=== PATIENT | female | born 1960 | race Asian ===

== ENCOUNTER 2017-08-13 14:01 | Emergency (ER) | payer MEDICAID, OTHER ==
[~2017-08-13] VITALS: Ht 165.1 cm; Wt 51.7 kg
[~2017-08-13 14:01] MED LIST: AUGMENTIN 875-1 EAC1 ORAL
[2017-08-13 14:15] VITALS: BP 110/73
[2017-08-13] MEDS ORDERED: Bacitracin Oint UD TOPIC ONE (14:15)
[2017-08-13] MEDS ORDERED: BACITRACIN15 GM TOPIC (14:26)
[2017-08-13 14:38] VITALS: BP 110/73
--- NOTE | 2017-08-13 15:23 | Emergency Room Report ---
History of Present Illness General Chief Complaint: Laceration Source: Patient Present Illness HPI The patient is a 56 old female presenting for right hand injury. She states that she was using a mandolin at home yesterday afternoon and cut the right palm. She states that there was some bleeding. She cleaned the area with alcohol and water and applied a dressing. She denies any pain today but states that she did have some bleeding. Last tetanus shot was 2 years prior. She denies any other injury or symptoms Allergies: Coded Allergies: No Known Allergies (Unverified , 02/05/15) Patient History Past Medical History: see triage record Pertinent Family History: none Reviewed Nursing Documentation: PMH: Agreed, PSxH: Agreed Nursing Documentation-PMH Hx Cardiac Problems: No Hx Hypertension: No Hx Pacemaker: No Hx Asthma: No Hx COPD: No Hx Diabetes: No Hx Cancer: No Hx Gastrointestinal Problems: No Hx Dialysis: No History Of Psychiatric Problem: No Hx Neurological Problems: No Hx Cerebrovascular Accident: No Hx Seizures: No Review of Systems All Other Systems: negative except mentioned in HPI Physical Exam Vital Signs Date Time Temp Pulse Resp B/P (MAP) Pulse Ox O2 Delivery O2 Flow Rate FiO2 08/13/17 14:07 98.2 80 18 110/73 100 Room Air Sp02 EP Interpretation: reviewed, normal General Appearance: no apparent distress, alert, GCS 15, non-toxic Head: normocephalic, atraumatic Eyes: bilateral eye normal inspection, bilateral eye PERRL ENT: hearing grossly normal, normal pharynx, no angioedema, normal voice Neck: full range of motion, supple/symm/no masses Musculoskeletal: normal range of motion, tender - TTP over the R thenar prominence where laceration is Neurologic: alert, oriented x3, responsive, motor strength/tone normal, sensory intact, speech normal Psychiatric: judgement/insight normal, memory normal, mood/affect normal, no suicidal/homicidal ideation Skin: normal color, normal turgor, laceration - \ Lymphatic: no adenopathy Medical Decision Making PA Attestation Dr. Serrano is my supervising physician. Patient management was discussed with my supervising physician Diagnostic Impression: Primary Impression: Hand laceration Qualified Codes: S61.411A - Laceration without foreign body of right hand, initial encounter ER Course The patient is a 56 old female presenting for right hand injury. Ddx considered include but not limited to fracture, tendon/ligament injury, avulsion, nerve damage PE: NAD R hand 3cm in length superficial laceration of thenar prominence. No bleeding. Does not extend through dermis. Full AROM of wrist and thumb intact. SILT Area is cleaned with normal saline and Betadine. Bacitracin applied with sterile dressing. She is given ER precautions Last Vital Signs Date Time Temp Pulse Resp B/P (MAP) Pulse Ox O2 Delivery O2 Flow Rate FiO2 08/13/17 14:07 98.2 80 18 110/73 100 Room Air Status: improved Disposition: HOME, SELF-CARE Condition: Improved Scripts Bacitracin (Bacitracin) 28.4 Gm Oint...g. 1 APPLIC TOPIC THREE TIMES A DAY, #28 GM Prov: JORDAN MURRAY 08/13/17 Referrals: [facility]ERR[facility] (PCP) Patient Instructions: Nonsutured Laceration Care Additional Instructions: I discussed my findings with the patient. All questions and concerns have been answered. Treatment and medication compliance have been addressed. I advised the patient that they need to follow up with primary doctor within one week for wound check and suture removal. Return to ED if pain remains or worsens, you notice discharge from the wound, the wound continues to bleed, you notice a fever or chills, or for any reason. Patient is advised to keep the wound clean. Patient verbalized understanding of discharge instructions. JORDAN MURRAY Aug 13, 2017 15:23
== END 2017-08-13 15:54 | disposition home or self-care (01) ==
LOC: EMR 14:22
DX: S61.411A Laceration without foreign body of right hand, initial encounter (principal); W26.8XXA Contact with other sharp object(s), not elsewhere classified, initial encounter; Y92.89 Other specified places as the place of occurrence of the external cause
CPT/HCPCS: 99283